=== PATIENT | female | born 1995 | race Caucasian/White ===

== ENCOUNTER 2021-09-20 16:35 | Observation (INO) | payer MEDICAID, SELFPAY ==
[2021-09-20] VITALS (8 sets, daily range): BP systolic 83–126; BP diastolic 51–91; PULSE 74–121; RESP 15–17; TEMP 36.1–36.2; O2SAT 94–100; BMI 25.0
--- NOTE | 2021-09-20 17:57 | EDS_ITS ---
HPI <SERGIO Carrasco - Last Filed: 09/20/21 22:16> HPI - Female History of Present Illness Chief Complaint: Vag Bleeding Narrative Narrative: 25-year-old female presents with vaginal bleeding. She states she was approximately 6 weeks confirmed by ultrasound when she had a miscarriage 2 weeks ago. She initially had heavy bleeding but it had tapered off to light vaginal spotting. They checked her beta hCG and it was 500 after the miscarriage. Then about an hour ago she developed lower abdominal cramping and heavy bleeding. She has passed five large clots the size of her palm. She denies fever, chills, nausea, vomiting, chest pain, shortness of breath, dizziness or lightheadedness. No vaginal discharge or dysuria. Her HEALTH POLICY NURSE is Dr. Rivas at [facility]. [facility] <SERGIO Carrasco - Last Filed: 09/20/21 22:16> [facility] Medical History no medical history Home Medications vit,[id number] [Prenatabs FA ] 1 tab PO DAILY 05/24/14 [History Last Taken 05/23/14 20:00 1] Allergy/AdvReac Type Severity Reaction Status Date / Time Sulfa (Sulfonamide Allergy Hives Verified 09/20/21 16:36 Antibiotics) acetaminophen [From Percocet] AdvReac Vomiting Verified 09/20/21 16:36 oxycodone [From Percocet] AdvReac Vomiting Verified 09/20/21 16:36 Family History unable to obtain Surgical History no surgical history Social History Smoking Status: Never smoker ROS <SERGIO Carrasco - Last Filed: 09/20/21 22:16> ROS ED ROS Narrative Constitutional: Negative for fever, chills, malaise. Eyes: Negative for visual change. ENT: Negative for sore throat, ear pain, rhinorrhea. CVS: Negative for palpitations, chest pain, syncope. Respiratory: Negative for shortness of breath, cough, orthopnea. GI: Positive for abdominal pain. Negative for nausea, vomiting, diarrhea, constipation, melena, hematochezia. : Negative for dysuria, hematuria or frequency. Neuro: Negative for headache, motor/sensory dysfunction. Skin: Negative for rash, abscess, or wound. Musc: Negative for joint pain, swelling, trauma. Heme: Negative for easy bruising, bleeding, lymphadenopathy. EXAM <SERGIO Carrasco - Last Filed: 09/20/21 22:16> Physical Exam Narrative Exam Narrative: CONST: Patient sitting in no acute distress. EYES: Normal inspection. NECK: Normal inspection. RESP: No respiratory distress, CTAB. CVS: Regular rate and rhythm, no murmur, no gallop. ABD: Soft and nontender, no guarding or rebound, nondistended, no hepatosplenomegaly. SKIN: Color normal, no rash, warm, dry, intact. EXTREMITIES: Normal appearance, no pedal edema. NEURO: Oriented x4. PSYCH: Normal affect. Const Vital Signs: 09/20/21 16:37 09/20/21 20:00 09/20/21 20:40 Temperature 97.0 F L Temperature Source Temporal Pulse Rate 98 86 Pulse Rate [Lying] 74 Pulse Rate [Standing] Respiratory Rate 17 15 Blood Pressure 113/91 H 126/84 H Blood Pressure [Lying] 109/70 Blood Pressure [Sitting] 111/68 Blood Pressure [Standing] Blood Pressure Mean 98 98 Blood Pressure Mean [Lying] 83 Blood Pressure Mean [Sitting] 82 Blood Pressure Mean [Standing] Pulse Ox 100 94 Oxygen Delivery Method Room Air Room Air 09/20/21 21:17 09/20/21 21:21 Temperature Temperature Source Pulse Rate 90 Pulse Rate [Lying] Pulse Rate [Standing] 121 H Respiratory Rate Blood Pressure 116/80 Blood Pressure [Lying] Blood Pressure [Sitting] Blood Pressure [Standing] 83/71 L Blood Pressure Mean 92 Blood Pressure Mean [Lying] Blood Pressure Mean [Sitting] Blood Pressure Mean [Standing] 75 Pulse Ox 95 Oxygen Delivery Method Room Air <Dr. Lui Lawrence MD - Last Filed: 09/20/21 23:05> Physical Exam Const Vital Signs: 09/20/21 16:37 09/20/21 20:00 09/20/21 20:40 Temperature 97.0 F L Temperature Source Temporal Pulse Rate 98 86 Pulse Rate [Lying] 74 Pulse Rate [Standing] Respiratory Rate 17 15 Blood Pressure 113/91 H 126/84 H Blood Pressure [Lying] 109/70 Blood Pressure [Sitting] 111/68 Blood Pressure [Standing] Blood Pressure Mean 98 98 Blood Pressure Mean [Lying] 83 Blood Pressure Mean [Sitting] 82 Blood Pressure Mean [Standing] Pulse Ox 100 94 Oxygen Delivery Method Room Air Room Air 09/20/21 21:17 09/20/21 21:21 Temperature Temperature Source Pulse Rate 90 Pulse Rate [Lying] Pulse Rate [Standing] 121 H Respiratory Rate Blood Pressure 116/80 Blood Pressure [Lying] Blood Pressure [Sitting] Blood Pressure [Standing] 83/71 L Blood Pressure Mean 92 Blood Pressure Mean [Lying] Blood Pressure Mean [Sitting] Blood Pressure Mean [Standing] 75 Pulse Ox 95 Oxygen Delivery Method Room Air [facility] <SERGIO Carrasco - Last Filed: 09/20/21 22:16> [facility] Narrative Medical decision making narrative: Patient had a recent miscarriage 2 weeks ago and presents with heavy vaginal bleeding. She appears well nontoxic. Vital signs are within normal limits. Cardiopulmonary exam within normal limits. Her abdomen is soft and nontender. She did pass a large clot while in the ED and it was approximately the size of my palm. Today her hemoglobin is 10.9. According to outside records on 08/20 it was 13.1. Her beta hCG is trending down from previous. Ultrasound shows retained POC. She was treated with IVF and I added a type and screen and PT/INR. I spoke with the on-call HEALTH POLICY NURSE, Dr. Armendariz, who will evaluate the patient at bedside. She may need admitted and taken to OR but is pending OBGYN disposition. Diagnoses 1. Retained products of conception 2. Anemia Lab Data Labs: Laboratory Results - last 24 hr 09/20/21 09/20/21 09/20/21 16:50 16:50 16:50 WBC 8.3 RBC 3.51 L Hgb 10.9 L Hct 32.5 L MCV 92.6 MCH 31.1 MCHC 33.5 RDW Std Deviation 43.8 RDW Coeff of Praveen 12.9 Plt Count 325 MPV 9.6 Immature Gran % (Auto) 0.700 Neut % (Auto) 67.6 Lymph % (Auto) 22.0 [place] % (Auto) 6.5 Eos % (Auto) 2.4 Baso % (Auto) 0.8 Absolute Neuts (auto) 5.6 Absolute Lymphs (auto) 1.83 Nucleated RBC % 0 PT 12.1 INR 1.0 HCG, Quant 156 H Blood Type 09/20/21 16:50 WBC RBC Hgb Hct MCV MCH MCHC RDW Std Deviation RDW Coeff of Praveen Plt Count MPV Immature Gran % (Auto) Neut % (Auto) Lymph % (Auto) [place] % (Auto) Eos % (Auto) Baso % (Auto) Absolute Neuts (auto) Absolute Lymphs (auto) Nucleated RBC % PT INR HCG, Quant Blood Type A POSITIVE Radiography Diagnostic Testing: Clinical Impression(s) from Imaging Studies Transvaginal US 09/20/21 18:58 IMPRESSION: Findings suspicious for retained products of conception. Electronically Signed: Erik Ryan MD at 21:16 EST , <Dr. Lui Lawrence MD - Last Filed: 09/20/21 23:05> [facility] MDM Narrative Medical decision making narrative: Patient is a 25-year-old woman who presents with vaginal bleeding. She has blood significantly today. She does report orthostatic symptoms. She has a positive blood. Patient is has passed several large clots during her ER course. She is had a significant drop in her he moglobin from prior. Unable to perform orthostatics because of the amount of bleeding her becoming nervous and reporting symptoms. Patient appears pale. Conjunctive is slightly pale. There is still erythema in the crease of the palms. Heart is rapid. Lungs are clear auscultation. Abdomen is remarkable some suprapubic discomfort. Ultrasound does reveal retained products of conception. Once the ultrasound was read by radiologist and confirms my suspicion funeral service apprentice has been contacted. Her funeral service apprentice will see her in the emergency department determine if she needs to go for urgent D&C. Patient has been made NPO. Radiologist agrees there is evidence of retained products of conception. Senior Process Analyst was contacted. Plan is OR. Lab Data Attestation: I reviewed the patient's lab results. Lab results narrative: Patient's quantitative hCG is lower than prior. In light of the amount of bleeding suspect patient has an incomplete AB. Will obtain ultrasound to evaluate for retained products of conception. Labs: Laboratory Results - last 24 hr 09/20/21 09/20/21 09/20/21 16:50 16:50 16:50 WBC 8.3 RBC 3.51 L Hgb 10.9 L Hct 32.5 L MCV 92.6 MCH 31.1 MCHC 33.5 RDW Std Deviation 43.8 RDW Coeff of Praveen 12.9 Plt Count 325 MPV 9.6 Immature Gran % (Auto) 0.700 Neut % (Auto) 67.6 Lymph % (Auto) 22.0 [place] % (Auto) 6.5 Eos % (Auto) 2.4 Baso % (Auto) 0.8 Absolute Neuts (auto) 5.6 Absolute Lymphs (auto) 1.83 Nucleated RBC % 0 PT 12.1 INR 1.0 HCG, Quant 156 H Blood Type 09/20/21 16:50 WBC RBC Hgb Hct MCV MCH MCHC RDW Std Deviation RDW Coeff of Praveen Plt Count MPV Immature Gran % (Auto) Neut % (Auto) Lymph % (Auto) [place] % (Auto) Eos % (Auto) Baso % (Auto) Absolute Neuts (auto) Absolute Lymphs (auto) Nucleated RBC % PT INR HCG, Quant Blood Type A POSITIVE Radiography Diagnostic Testing: Clinical Impression(s) from Imaging Studies Transvaginal US 09/20/21 18:58 IMPRESSION: Findings suspicious for retained products of conception. Electronically Signed: Erik Ryan MD at 21:16 EST , <Dr. Lui Lawrence MD - Last Filed: 09/20/21 23:05> Critical Care Time Critical Care Time: Yes Critical care time (excluding procedures): 30-74 minutes (31), Including time spent: (History, physical, documentation, review of PAs note, depression laboratory results and ultrasound, consultation with LAST MODEL DEPARTMENT SUPERVISOR), Discussing w/Patient &/or Family/Manufacturing Business Analyst and Discussing w/Consultants Discharge Plan Triage Chief Complaint: Vag Bleeding ED Provider: Eloina Montilla Dx/Rx/DC Orders Clinical Impression: Retained products of conception after miscarriage, Anemia due to acute blood loss, Symptomatic orthostatic increase in heart rate Primary Care Provider: Caitie King Disposition Disposition: Acute Care Hospital [facility]
[2021-09-20 18:22] LABS: Absolute Lymphocyte Count 1.83 X10^3/uL (0.83-4.51); Absolute Neutrophil Count 5.6 X10^3/uL (2.0-7.7); Basophil# 0.07 X10^3/uL; Basophil% 0.8 % (0-1); Eosinophils% 2.4 % (0-5); Hematocrit 32.5 % (37-47); Hemoglobin 10.9 g/dL (12.0-15.0); Lymphocyte # 1.83 X10^3/ul (0.83-4.51); Mean Corp Hgb Conc 33.5 g/dL (32-36); Mean Corpuscular Hgb 31.1 pg (27.0-32.0); Mean Corpuscular Volume 92.6 fL (81-99); Mean Platelet Vol. 9.6 fl (6.2-12.0); Monocyte# 0.54 X10^3/uL; Monocyte% 6.5 % (0-10); NRBC Flagged by Analyzer 0 % (0-5); Neutrophil # 5.61 X10^3/uL (2.7-7.7); Neutrophil % 67.6 % (47-70); Platelet Count 325 K/mm3 (150-450); RBC Distribution Width CV 12.9 % (11.6-14.6); RBC Distribution Width SD 43.8 fl (35.1-43.9); Red Blood Count 3.51 M/mm3 (4.2-5.4); White Blood Count 8.3 K/mm3 (4.4-11.0)
[2021-09-20 18:35] LABS: hCG Titer Quant., Serum 156 mIU/mL (1-3)
--- NOTE | 2021-09-20 18:58 | US_ITS ---
INDICATION: abdominal pain, vaginal bleeding EXAMINATION: US Transvaginal Non-OB TECHNIQUE: Transvaginal (for optimal evaluation of the adnexa) pelvic ultrasound was performed. Grayscale, spectral waveform, and color flow Doppler evaluation of the adnexa. COMPARISON: None. FINDINGS: UTERUS: Anteverted. The uterus measures 11.5 x 5.7 x 5 cm. There is no uterine mass. The endometrial stripe measures 18 mm in AP diameter. It is heterogeneous and hypervascular. RIGHT OVARY: Measures 4.2 x 1.8 x 1.7 cm. Non-enlarged, normal echogenicity. There is normal arterial inflow and venous outflow present in the right ovary. LEFT OVARY: Measures 2.2 x 1.6 x 1.4 cm. Non-enlarged, normal echogenicity. There is normal arterial inflow and venous outflow present in the left ovary. FREE FLUID: None. US/Transvaginal Non- IMPRESSION: Findings suspicious for retained products of conception. Electronically Signed: Erik Ryan MD at 21:16 EST ,
[2021-09-20] MEDS: 0.9% Normal Saline 1,000 ML 999 ML IV ×2 (20:15→21:24)
[2021-09-20] MEDS: Ondansetron 4 MG/2 ML Vial IV ×2 (20:15→22:31)
[2021-09-20] MEDS: Morphine 4 MG/ML Syringe IV (20:53)
--- NOTE | 2021-09-20 20:57 | ED.RN ---
Unable to get BP standing d/t pain and bleeding. Will attempt again in a little bit.
[2021-09-20 22:25] LABS: Prothrombin Time (Protime)PT. 12.1 SECONDS (11.7-14.9)
--- NOTE | 2021-09-20 22:49 | PCM.HP.BLA ---
History and Physical Date of Admission: 09/20/21 HPI: 25 yo presenting with bleeding. Patient was evaluated for bleeding in early a couple weeks ago with her primary GAMING SURVEILLANCE OBSERVER. She had ultrasound at that time which noted a 5-week embryo. She had declining quant hCG levels. Decision for management was expectant at that time. She had declining quants. States that over the weekend she had stopped bleeding. However today she noted heavy bleeding soaking through several pads. She reports dizziness and lightheadedness. Denies chest pain or shortness of breath denies nausea or vomiting fevers or chills. Primary GAMING SURVEILLANCE OBSERVER: Dr. Derian Escalante GAMING SURVEILLANCE OBSERVER HISTORY: G1: 2014 at term G2: 2019 at term, resolved previa . Medical history: Denies Surgical history: 1. [place] teeth extraction Medications: Denies Social history: Denies tobacco, drug, alcohol use. Family history: Denies history of blood clots or bleeding disorders Allergies: Bactrim Review of systems: Negative otherwise stated above Physical exam: Blood pressure 116/80 pulse 90 oxygen saturation 95% on room air temp 97 ?F General: Patient is no acute distress, resting in bed. Pale in appearance. HEENT: Normocephalic/atraumatic, PERRLA Cardiorespiratory: No increased effort, regular heart rate Abdomen: Soft, nontender Extremities: No edema Neurologic: Cranial nerves II through XII grossly intact Musculoskeletal: Full range of motion throughout, muscle strength 5 out of 5 all extremities Labs: WBC 8.3, hemoglobin/hematocrit 10.9/32.5, platelet 325 hCG quant 156 Transvaginal ultrasound: Showing normal-appearing 18 mm with blood flow Assessment/plan: 25-year-old G3, P2 with incomplete spontaneous . -Patient symptomatic with dizziness and increased bleeding today. -Recommend surgical management at this time as patient is symptomatic. -Plan for suction dilation and curettage. All risk, benefits, alternatives were discussed with the patient. Risks include but are not limited to: Risk of the point of transfusion, infection, injury to surrounding tissue including bowel/bladder/uterine perforation, VTE, ICU admission. Patient aware and consented. -We will give doxycycline 200 mg IV preoperatively -All questions answered. Consent signed.
--- NOTE | 2021-09-20 23:06 | PCM.OPRPT ---
Report of Operation Date of Procedure: 09/20/21 Pre-Operative Diagnosis: Incomplete spontaneous Post-Operative Diagnosis: Incomplete spontaneous Surgery/Procedure Performed:: Suction dilation and curettage Description of Surgical Findings:: Normal-appearing external genitalia. Dilated cervical os. Type of Anesthesia: MAC Estimated Blood Loss (mL): 50 cc Fluids Replaced: 200 cc Description of Procedure: Indication/risk/benefits: 25-year-old G3, P2 with incomplete plan for suction dilation and curettage. All risks, benefits, alternatives were discussed the patient. Risks include but not limited to: Risk of bleeding to the point of transfusion, infection, injury to surrounding tissue (bowel/bladder/uterine perforation), VTE, ICU admission. Patient aware and consented. Procedure: Patient taken to the operating room, MAC anesthesia induced. Patient placed in the dorsal lithotomy position and prepped and draped in usual sterile fashion. Weighted speculum placed in posterior vagina and Frias retractor used to visualize the cervix. Anterior lip of the cervix grasped with Allis clamp. Cervix was noted to be dilated. Suction curette utilized to remove uterus of all products of conception and clot. Uterus and cervix hemostatic. Allis clamp removed, weighted speculum removed. At the end of the procedure all needle, lap, sponge counts correct x2. Urine output: 50 cc Complications None
--- NOTE | 2021-09-20 23:06 | PCM.DC ---
Discharge Instructions Diet Discharge Diet: No restrictions Activity Discharge Activity: Return to Normal Activity and May Shower May resume sexual activity in: 4 weeks Weight Bearing Status: Weight bearing as tolerated Lifting Restrictions: None Dressing / Incision Call your doctor if you observe: Fever of 101 or Higher, Using more than 1 pad per hour, Shortness of breath, Dizziness, Fainting spells and Chest pain Follow Up Care Please Follow Up With: Scarlet Abbott DO When: 2 week post operatively Test Results: Test results from this visit will be discussed in further detail at your follow-up appointment, if applicable. Discharge Plan Admission Primary Reason for Your Visit: Miscarriage, Suction dilation and curettage Attending Provider: Scarlet Abbott Primary Care Provider: Caitie King Discharge Orders/Prescriptions Prescriptions: No Action vit,[id number] [Prenatabs FA] 1 TABLET tablet 1 tab PO DAILY RF: 0 Referrals / Follow Up: Caitie King MD [Primary Care Provider] - Disposition Disposition (needs filled in before D/C Order can be placed): Home, Self Care
--- NOTE | 2021-09-20 23:30 | POC_PTH ---
PATIENT: BROOKE NUNEZ LOC: [facility] U#:[id number] AGE/SX: 25/F ROOM: [facility]318 RE09/21/[address]: Dr. Scarlet Abbott DO : 1995 BED: 1 DIS: 09/21/2021 SPEC #: [id number] RECD: 09/21/21 08:22 STATUS: FADUMO IRIZARRY #: [id number] LIN: 09/20/21 23:[address]: Scarlet Abbott DEPT: SURGICAL PATHOLOGY RECD BY: Maryam Galvan ENTERED: 09/21/21 08:44 SP TYPE: PROD CONC OTHR DR: Dr. Caitie King MD Tissues: Product of conception, NOS Procedures: Surgery Specimen Level IV HEADER OPERATION: Suction dilation and curettage PRE-OP DIAGNOSIS: Incomplete spontaneous TISSUE SUBMITTED: Products of conception MICROSCOPIC DIAGNOSIS Endometrium, curettage: Chorionic villi, decidualized stroma and trophoblastic cells consistent with products of conception. AM:yogi 09/22/2021 MICROSCOPIC DESCRIPTION Slides are reviewed. GROSS DESCRIPTION Received in fixative is one container labeled with the patient's name and designated products of conception. The specimen consists of multiple fragments of hemorrhagic soft tissue that in aggregate measure 5.5 x 6 x 2 cm. One of the pieces appear to consist of gestational sac measuring 3.5 cm in greatest dimension. No tissue is identified. Trimmer Hand tissue is submitted in two cassettes. / SJ:yogi 09/21/2021 TC:5 CPT: 67829
[2021-09-21 00:06] VITALS: BP 106/67; BP 84/49; PULSE 104; RESP 16; TEMP 36.3; O2SAT 98
[2021-09-21 00:15] VITALS: BP 102/65; BP 106/67; PULSE 94; RESP 16; O2SAT 100
[2021-09-21 00:28] VITALS: BP 106/67; BP 109/68; PULSE 81; RESP 16; TEMP 36.4; O2SAT 100
[2021-09-21 00:54] VITALS: BP 101/62; PULSE 83; RESP 16; TEMP 36.4; O2SAT 100; BMI 25.9
[2021-09-21] MEDS: 0.9% Saline Lock 10 ML Syringe IV (04:50)
[2021-09-21 04:52] VITALS: BP 95/55; PULSE 80; RESP 16; TEMP 36.4; O2SAT 100
[2021-09-21 05:45] LABS: Hematocrit 23.7 % (37-47); Mean Corp Hgb Conc 33.8 g/dL (32-36); Mean Corpuscular Hgb 31.6 pg (27.0-32.0); Mean Corpuscular Volume 93.7 fL (81-99); Mean Platelet Vol. 9.6 fl (6.2-12.0); Platelet Count 247 K/mm3 (150-450); RBC Distribution Width CV 13.1 % (11.6-14.6); RBC Distribution Width SD 44.8 fl (35.1-43.9); Red Blood Count 2.53 M/mm3 (4.2-5.4); White Blood Count 6.7 K/mm3 (4.4-11.0)
--- NOTE | 2021-09-21 08:41 | PN.OBGYN_ITS ---
Subjective Subjective Patient seen and examined. Patient seated in bed about to eat breakfast. Feels fatigued. Dizziness has resolved. Denies shortness of breath, nausea or vomiting, bleeding. Feeling well aside from fatigue. Objective Data Objective Data Vital Signs: Vital Signs Temp Pulse Resp BP Pulse Ox 97.6 F L 80 16 95/55 L 100 09/21/21 04:52 09/21/21 04:52 09/21/21 04:52 09/21/21 04:52 09/21/21 04:52 Oxygen Delivery Method Room Air Weight: 79.7 kg Body Mass Index (BMI) 25.9 Intake & Output: Intake and Output for Last 24 Hours 09/19/21 09/20/21 09/21/21 23:59 23:59 23:59 Intake Total 1999 270 / 270 Output Total 275 / 275 Balance 1949 / 1949 -5 / -5 Lab / Micro Data Result Diagrams: 09/21/21 04:50 Labs: Laboratory Results - last 24 hr 09/20/21 16:50: WBC 8.3, RBC 3.51 L, Hgb 10.9 L, Hct 32.5 L, MCV 92.6, MCH 31.1, MCHC 33.5, RDW Std Deviation 43.8, RDW Coeff of Praveen 12.9, Plt Count 325, MPV 9.6, Immature Gran % (Auto) 0.700, Neut % (Auto) 67.6, Lymph % (Auto) 22.0, [place] % (Auto) 6.5, Eos % (Auto) 2.4, Baso % (Auto) 0.8, Absolute Neuts (auto) 5.6, Absolute Lymphs (auto) 1.83, Nucleated RBC % 0 09/20/21 16:50: HCG, Quant 156 H 09/20/21 16:50: PT 12.1, INR 1.0 09/20/21 16:50: Blood Type A POSITIVE, Antibody Screen POSITIVE H, Antibody Identification ANTI-E, Antigen Identification Cancelled, Red Cell Ag Phenotyp Cancelled, Crossmatch See Detail 09/20/21 16:50: Antigen Identification K ANTIGEN - NEGATIVE 09/21/21 04:50: WBC 6.7, RBC 2.53 L, Hgb 8.0 L, Hct 23.7 L, MCV 93.7, MCH 31.6, MCHC 33.8, RDW Std Deviation 44.8 H, RDW Coeff of Praveen 13.1, Plt Count 247, MPV 9.6 09/21/21 : Antigen Identification E ANTIGEN - NEGATIVE Radiography Diagnostic Testing: Radiology Impression Transvaginal US 09/20/21 18:58 IMPRESSION: Findings suspicious for retained products of conception. Electronically Signed: Erik Ryan MD at 21:16 EST , Physical Exam Const alert, oriented x3 and no apparent distress HEENT normocephalic Head and Scalp: atraumatic Eyes PERRL Resp normal respiratory effort, no retractions and no use of accessory muscles Cardio regular rate GI normal to inspection, nondistended, normoactive bowel sounds Extremity normal to inspection and no pedal edema Assessment & Plan (1) Incomplete : PLAN: Postop day 0 status post suction dilation and curettage for incomplete . Hemoglobin today at 8. Acute blood loss anemia, recommend iron 3 times weekly on discharge. Symptomatic hypotension resolved. Bleeding minimal. Discharge home today with follow-up in 2 weeks. Precautions of when to call or return to ER provided: Bleeding soaking 2 pads an hour for 2 hours, lightheadedness or dizziness, fever, foul-smelling vaginal discharge. All questions answered. (2) Anemia due to acute blood loss:
[2021-09-21 09:00] VITALS: BP 99/59; PULSE 100; RESP 18; TEMP 36.7; O2SAT 100
== END 2021-09-21 09:34 | disposition home or self-care (01) ==
LOC: ED 18:08 → SDC 22:54 → AC 23:05 → MS3 23:49 → SDC 09-21 01:05 → MS3 09-21 01:05
PROVIDERS: Admitting Provider Student in an Organized Health Care Education/Training Program; Emergency Provider Physician Assistant; PCP Internal Medicine; Visit Provider Student in an Organized Health Care Education/Training Program
PROC: (CPT 59812; principal; 2021-09-21)
DX: O03.4 Incomplete spontaneous abortion without complication (principal); R42 Dizziness and giddiness; D62 Acute posthemorrhagic anemia
CPT/HCPCS: 59812; 01965; 36415; 76830; 84702; 85025; 85027; 85610; 86850; 86870; 86900; 86901; 86902; 86905; 86920; 88305; 96374; 96375; 96376; 99218; 99285; J7030; A4216; G0378; J2405

== ENCOUNTER → 2022-02-18 | Outpatient (CLI) | payer MEDICAID, SELFPAY ==
[2022-02-18 14:56] LABS: Absolute Lymphocyte Count 1.42 X10^3/uL (0.83-4.51); Absolute Neutrophil Count 8.3 X10^3/uL (2.0-7.7); Basophil# 0.06 X10^3/uL; Basophil% 0.6 % (0-1); Eosinophils% 0.9 % (0-5); Hemoglobin 14.2 g/dL (12.0-15.0); Lymphocyte # 1.42 X10^3/ul (0.83-4.51); Lymphocyte % 13.4 % (19-41); Mean Corp Hgb Conc 33.8 g/dL (32-36); Mean Corpuscular Hgb 30.6 pg (27.0-32.0); Mean Corpuscular Volume 90.5 fL (81-99); Mean Platelet Vol. 9.9 fl (6.2-12.0); Monocyte# 0.64 X10^3/uL; NRBC Flagged by Analyzer 0 % (0-5); Neutrophil # 8.32 X10^3/uL (2.7-7.7); Neutrophil % 78.6 % (47-70); Platelet Count 268 K/mm3 (150-450); RBC Distribution Width CV 13.4 % (11.6-14.6); RBC Distribution Width SD 44.8 fl (35.1-43.9); Red Blood Count 4.64 M/mm3 (4.2-5.4); White Blood Count 10.6 K/mm3 (4.4-11.0)
[2022-02-18 15:49] LABS: HIV - WCH Non-Reactive (Nonreactive); Hepatitis B Surface Antigen Non-Reactive (Nonreactive); Hepatitis C Antibody Non-Reactive (Nonreactive); Rubella IgG Reactive (Nonreactive); Syphilis Antibodies Non-reactive
[2022-02-21 22:06] LABS: Chlamydia By Nucleic Acid AMP Negative (Negative)
[2022-02-21 23:01] LABS: Gonococcus By Nucleic Acid AMP Negative (Negative)
[2022-03-01 16:11] LABS: HPV APTIMA, High Risk Positive (Negative); HPV Reflexed? YES, CHARGE PATIENT
== END | disposition home or self-care (01) ==
LOC: WOBLAB 14:06
PROVIDERS: PCP Internal Medicine; Visit Provider Student in an Organized Health Care Education/Training Program
DX: Z12.4 Encounter for screening for malignant neoplasm of cervix (principal); Z11.3 Encounter for screening for infections with a predominantly sexual mode of transmission; Z34.81 Encounter for supervision of other normal pregnancy, first trimester
CPT/HCPCS: 36415; 85025; 86703; 86762; 86780; 86803; 86870; 87086; 87088; 87340; 87491; 87591; 87624; 88175; G0145

== ENCOUNTER → 2022-02-22 | Outpatient (CLI) | payer MEDICAID, SELFPAY | END | disposition home or self-care (01) | PROVIDERS: PCP Internal Medicine; Visit Provider Student in an Organized Health Care Education/Training Program | DX: O36.0190 Maternal care for anti-D [Rh] antibodies, unspecified trimester, not applicable or unspecified (principal); Z3A.00 Weeks of gestation of pregnancy not specified | CPT/HCPCS: 36415 ==

== ENCOUNTER → 2022-03-15 | Outpatient (CLI) | payer MEDICAID, SELFPAY ==
[2022-03-15 13:58] LABS: NATERA MAILED SPECIMEN
== END | disposition home or self-care (01) ==
LOC: LAB 12:51
PROVIDERS: PCP Internal Medicine; Referring Provider Obstetrics & Gynecology; Visit Provider Obstetrics & Gynecology
DX: O36.1110 Maternal care for Anti-A sensitization, first trimester, not applicable or unspecified (principal); Z3A.00 Weeks of gestation of pregnancy not specified
CPT/HCPCS: 36415

== ENCOUNTER → 2022-03-18 | Outpatient (CLI) | payer MEDICAID, SELFPAY | END | disposition home or self-care (01) | PROVIDERS: PCP Internal Medicine; Visit Provider Student in an Organized Health Care Education/Training Program | DX: Z01.84 Encounter for antibody response examination (principal) | CPT/HCPCS: 36415 ==

== ENCOUNTER → 2022-04-15 | Outpatient (CLI) | payer MEDICAID, SELFPAY | END | disposition home or self-care (01) | PROVIDERS: PCP Internal Medicine; Visit Provider Student in an Organized Health Care Education/Training Program | DX: Z01.84 Encounter for antibody response examination (principal) | CPT/HCPCS: 36415 ==

== ENCOUNTER → 2022-05-13 | Outpatient (CLI) | payer MEDICAID, SELFPAY | END | disposition home or self-care (01) | PROVIDERS: PCP Internal Medicine; Visit Provider Obstetrics & Gynecology | DX: Z01.84 Encounter for antibody response examination (principal) | CPT/HCPCS: 36415 ==

== ENCOUNTER → 2022-06-17 | Outpatient (CLI) | payer MEDICAID, SELFPAY ==
[2022-06-17 14:53] LABS: Hematocrit 35.5 % (37-47); Hemoglobin 11.7 g/dL (12.0-15.0); Mean Corpuscular Hgb 30.2 pg (27.0-32.0); Mean Corpuscular Volume 91.7 fL (81-99); Mean Platelet Vol. 9.6 fl (6.2-12.0); Platelet Count 247 K/mm3 (150-450); RBC Distribution Width CV 13.2 % (11.6-14.6); Red Blood Count 3.87 M/mm3 (4.2-5.4); White Blood Count 8.2 K/mm3 (4.4-11.0)
[2022-06-17 15:02] LABS: Glucose Challenge Gest 1H 50g 92 mg/dL (70-140)
== END | disposition home or self-care (01) ==
PROVIDERS: PCP Internal Medicine; Visit Provider Student in an Organized Health Care Education/Training Program
DX: Z34.82 Encounter for supervision of other normal pregnancy, second trimester (principal)
CPT/HCPCS: 36415; 82950; 85027

== ENCOUNTER → 2022-11-09 | Outpatient (CLI) | payer MEDICAID, SELFPAY ==
--- NOTE | 2022-11-09 10:00 | ECC_PTH ---
PATIENT: BROOKE NUNEZ LOC: [facility] U#:[id number] AGE/SX: 26/F ROOM: RE11/09/[address]: Dr. Scarlet Abbott DO : 1995 BED: DIS: 11/09/2022 SPEC #: [id number] RECD: 11/09/22 11:36 STATUS: FADUMO REBreezy #: [id number] LIN: 11/09/22 10:[address]: Scarlet Abbott DEPT: SURGICAL PATHOLOGY RECD BY: Cuong Albert ENTERED: 11/09/22 12:55 SP TYPE: ECC TRAY DR: Dr. Caitie King MD Tissues: A - Uterine cervix, NOS B - Endocervical Procedures: Surgery Specimen Level IV HEADER OPERATION: Colposcopy and ECC PRE-OP DIAGNOSIS: Abnormal pap TISSUE SUBMITTED: A ? Colposcopy 6, 10, 2, B - ECC MICROSCOPIC DIAGNOSIS A. Cervix, 6, 10 and 2 o?clock, biopsy: Chronic inflammation. Negative for dysplasia. B. ECC: Scant fragments of benign endocervical epithelium and mucous. Negative for dysplasia. See comment. ALICE:yogi 11/10/2022 COMMENT A & B. Multiple levels are examined. B. The specimen predominantly consists of mucoid tissue. Clinical correlation and appropriate follow up are necessary. MICROSCOPIC DESCRIPTION Slides are reviewed. GROSS DESCRIPTION A - Received in fixative is one container labeled with the patient's name and designated colposcopy 6, 10, 2. The specimen consists of multiple irregular fragments of light aceves soft tissue that in aggregate measure 1.5 x 1.0 x 0.2 cm. The specimen is totally submitted in one cassette. B - Received in fixative is one container labeled with the patient's name and designated ECC. The specimen consists of multiple irregular fragments of aceves tissue that in aggregate measure 2.5 x 1.5 x 0.1 cm. The specimen is totally submitted in one cassette. / AM:yogi 11/09/2022 TC:3 CPT: 94992 x2
== END | disposition home or self-care (01) ==
LOC: LABSPEC 10:41
PROVIDERS: PCP Internal Medicine; Visit Provider Student in an Organized Health Care Education/Training Program
DX: R87.619 Unspecified abnormal cytological findings in specimens from cervix uteri (principal)
CPT/HCPCS: 88305